=== PATIENT | male | born 1965 | race Hispanic/Latino ===

== ENCOUNTER → 2017-04-30 | Outpatient (CLI) | payer OTHER ==
--- NOTE | 2017-04-30 16:31 | Diagnostic Imaging Report ---
PROCEDURE: CT ABDOMEN AND PELVIS WITHOUT CONTRAST COMPARISON:None. INDICATIONS:BLOOD IN URINE, STONE PROTOCOL TECHNIQUE: Axial CT images through the abdomen and pelvis were obtained without intravenous contrast. Coronal and sagittal reformations were created. DLP: 762.69 FINDINGS: Lung bases: Clear. The visualized portion of the mediastinum is unremarkable. Right kidney: No renal calculus or hydronephrosis. No cortical mass. Left kidney: No renal calculus or hydronephrosis. No cortical mass. Bladder/ureters: The bladder is underdistended. Nevertheless, there is diffuse mural thickening. No perivesicular inflammation. No ureteral dilatation or calculus. Liver: Diffusely decreased attenuation. No evidence of mass. The right lobe measures 20 cm in length. Spleen: Normal size and attenuation without mass Biliary: The gallbladder is present. No evidence of gallstone. Biliary tree is normal. Pancreas: Mild fatty atrophy. No mass or ductal dilatation. Adrenal Glands: No mass. Vasculature: The aorta is normal in diameter. A few atherosclerotic calcifications are present. GI: The stomach, small bowel, and large bowel are normal in diameter and wall thickness. There is mild to moderate burden of solid stool throughout the entire colon. No diverticula cyst. The appendix is normal. Peritoneum/Retroperitoneum: No free fluid or fluid collection. Lymph nodes: No enlarged abdominal, mesenteric, pelvic or inguinal lymph nodes. Reproductive organs: The prostate gland and seminal vesicles are normal. MSK: There degenerative changes throughout the thoracic and lumbar spine. No compression deformities. There are no destructive lesions. A bone island in the left pubic symphysis measures 10 mm. There is a subcentimeter bone island in the left humeral head. Soft tissues: A fat containing umbilical hernia has an aperture of 9 mm. CONCLUSION: 1. Diffuse bladder wall thickening should be further urography. 2. Hepatic steatosis and hepatomegaly. Dictated by: Rodrigo Lynne M.D. on 04/30/2017 at 16:39 Electronically approved by: Rodrigo Lynne M.D. on 04/30/2017 at 16:39
== END ==
LOC: CT 15:19
PROVIDERS: ATTEND Family Medicine
DX: N23 Unspecified renal colic (principal)
CPT/HCPCS: 74176

== ENCOUNTER 2018-10-19 13:51 | Inpatient (IN) | payer OTHER ==
[~2018-10-19] VITALS: Ht 182.9 cm; Wt 103.4 kg
--- OUTSIDE RECORDS SUMMARY | 2018-10-19 13:54 | XMS REPORT ---
Author Author [facility] Address Unknown Phone Unavailable Care Team Providers Care District Sales Manager Name Role Phone ERNESTO ARRIAZA Unavailable Unavailable Problems This patient has no known problems. Allergies, Adverse Reactions, Alerts This patient has no known allergies or adverse reactions. Medications This patient has no known medications. Results Test Description Test Time Test Comments Text Results Atomic Results Result Comments CT ABDOMEN/PELVIS WO [place] [address] Patient Name: OMARI DAMON MR #: [id number] : 1965 Age/Sex: 51/M Req #: [id number] Adm Physician: Ordered by: ARSALAN BAIRES, ERNESTO Jo MD Report #: [id number] Location: CT Room/Bed: Procedure: [id number] CT/CT ABDOMEN/PELVIS WO Exam Date: 04/30/17 Exam Time: 1610 REPORT STATUS: Signed PROCEDURE: CT ABDOMEN AND PELVIS WITHOUT CONTRAST COMPARISON: None. INDICATIONS: BLOOD IN URINE, STONE PROTOCOL TECHNIQUE: Axial CT images through the abdomen and pelvis were obtained without intravenous contrast. Coronal and sagittal reformations were created. DLP: 762.69 FINDINGS: Lung bases: Clear. The visualized portion of the mediastinum is unremarkable. Right kidney: No renal calculus or hydronephrosis. No cortical mass. Left kidney: No renal calculus or hydronephrosis. No cortical mass. Bladder/ureters: The bladder is underdistended. Nevertheless, there is diffuse mural thickening. No perivesicular inflammation. No ureteral dilatation or calculus. Liver: Diffusely decreased attenuation. No evidence of mass. The right lobe measures 20 cm in length. Spleen: Normal size and attenuation without mass Biliary: The gallbladder is present. No evidence of gallstone. Biliary tree is normal. Pancreas: Mild fatty atrophy. No mass or ductal dilatation. Adrenal Glands: No mass. Vasculature: The aorta is normal in diameter. A few atherosclerotic calcifications are present. GI: The stomach, small bowel, and large bowel are normal in diameter and wall thickness. There is mild to moderate burden of solid stool throughout the entire colon. No diverticula cyst. The appendix is normal. Peritoneum/Retroperitoneum: No free fluid or fluid collection. Lymph nodes: No enlarged abdominal, mesenteric, pelvic or inguinal lymph nodes. Reproductive organs: The prostate gland and seminal vesicles are normal. MSK: There degenerative changes throughout the thoracic and lumbar spine. No compression deformities. There are no destructive lesions. A bone island in the left pubic symphysis measures 10 mm. There is a subcentimeter bone island in the left humeral head. Soft tissues: A fat containing umbilical hernia has an aperture of 9 mm. CONCLUSION: 1. Diffuse bladder wall thickening should be further urography. 2. Hepatic steatosis and hepatomegaly. Dictated by: Nena Lynne M.D. on 04/30/2017 at 16:39 Electronically approved by: Nena Lynne M.D. on 04/30/2017 at 16:39 Dictated By: NENA LYNNE MD [id number] Transcribed By: INNA on 04/30/17 [id number] COPY TO: ERNESTO ARRIAZA
--- NOTE | 2018-10-19 17:31 | NUR ---
PATIENT BROUGHT INTO TRIAGE. EXAMINED BY BENTON Bashir
[2018-10-19] MEDS ORDERED: DEXAMETHASONE SOD PHOS 10 MG/1 ML VIAL IM NR (17:45)
[2018-10-19] MEDS ORDERED: ORPHENADRINE CITRATE 30 MG/ML VIAL IM ONE (17:45)
[2018-10-19] MEDS ORDERED: KETOROLAC TROMETHAMINE 60 MG/2 ML VIAL IM NR (17:45)
--- NOTE | 2018-10-19 17:51 | NUR ---
PATIENT CAME TO WINDOW C/O OF MIDSTERNAL CHEST PAIN. NON RADIATING. FEELS LIKE SOMEONE IS STEPPING ON MY CHEST. DENIES ANY N/V. DENIES EVERY HAVING THIS FEELING BEFORE. STATES, "MAYBE ITS HEARTBURN, I HAVENT EATEN ALL DAY
[2018-10-19] MEDS ORDERED: NIFEDIPINE 10 MG CAP PO NR (18:00)
[2018-10-19 18:21] LABS: BASOPHILS % 0.4 % (0.0-1.0); EOSINOPHILS % 0.4 % (0.0-6.0); HEMOGLOBIN 15.2 g/dL (14.0-18.0); LYMPHOCYTES # (AUTO) 1.7 (1.0-3.2); LYMPHOCYTES % 15.5 % (18.0-39.1); MEAN CORPUSCULAR HEMOGLOBIN 34.7 pg (28-32); MEAN CORPUSCULAR HGB CONC 34.5 g/dL (31-35); MEAN CORPUSCULAR VOLUME 100.5 fL (81-99); MONOCYTES % 9.4 % (4.4-11.3); NEUTROPHILS # (AUTO) 7.9 (2.1-6.9); NEUTROPHILS % 73.8 % (38.7-80.0); PLATELET COUNT 213 x10e3/uL (140-360); RED BLOOD COUNT 4.38 x10e6/uL (4.3-5.7); RED CELL DISTRIBUTION WIDTH 13.3 % (11.7-14.4)
[2018-10-19 18:23] LABS: BILIRUBIN,URINE NEGATIVE (NEGATIVE); CLARITY,URINE CLEAR (CLEAR); COLOR,URINE YELLOW (YELLOW); KETONES,URINE NEGATIVE (NEGATIVE); LEUKOCYTE ESTERASE ,URINE NEGATIVE (NEGATIVE); NITRITE,URINE NEGATIVE (NEGATIVE); PROTEIN,URINE DIPSTICK NEGATIVE (NEGATIVE); URINE UROBILINOGEN 0.2 mg/dL (0.2 - 1)
[2018-10-19] MEDS ORDERED: DEXAMETHASONE SOD PHOS 10 MG/1 ML VIAL IV NR (18:30)
[2018-10-19] MEDS ORDERED: KETOROLAC TROMETHAMINE 60 MG/2 ML VIAL IV NR (18:30)
--- NOTE | 2018-10-19 18:51 | Diagnostic Imaging Report ---
EXAMINATION: CHEST 2 VIEWS INDICATION: Back pain COMPARISON: None FINDINGS: PA and lateral views TUBES and LINES: None. LUNGS: Lungs are well inflated. Lungs are clear. There is no evidence of pneumonia or pulmonary edema. PLEURA: No pleural effusion or pneumothorax. HEART AND MEDIASTINUM: The cardiomediastinal silhouette is unremarkable. BONES AND SOFT TISSUES: Mild anterior wedging T6 vertebral body. Degenerative changes in the thoracic spine. Right cervical rib. Soft tissues are unremarkable. UPPER ABDOMEN: No free air under the diaphragm. IMPRESSION: No acute thoracic abnormality. Degenerative changes in the thoracic spine. Signed by: Manolo Jj MD on 10/19/2018 6:48 PM
--- NOTE | 2018-10-19 18:54 | Diagnostic Imaging Report ---
Lumbar Spine Radiographs: 5 views HISTORY: Pain. COMPARISON: None available. DISCUSSION: Some of the osseous structures are partially obscured by stool and bowel gas. There are five non-rib bearing lumbar vertebral bodies. The alignment of the spine is within normal limits. No displaced fracture or compression deformity is identified. Disc Spaces: Mild disc height loss L4-S1. Multilevel disc osteophytes in the lumbar spine. Facets: Mild sclerotic changes of the lower lumbar spine facets. IMPRESSION: No acute radiographic abnormality. Moderate degenerative changes in the mid to lower lumbar spine. Signed by: Manolo Jj MD on 10/19/2018 6:50 PM
[2018-10-19 18:56] LABS: BACTERIA,URINE FEW /HPF; EPITHELIAL CELLS,URINE FEW /LPF; RBC,URINE 0-5 /HPF (0-5); WBC,URINE (MAN) 0-5 /HPF (0-5)
--- NOTE | 2018-10-19 18:58 | NUR ---
PATIENT BROUGHT BACK TO TRIAGE FOR RE-EVALUATION OF BP AND CHEST PAIN. STATES CP IS BETTER. 07/28, BP 143/83
[2018-10-19 19:19] LABS: ALANINE AMINOTRANSFERASE 36 IU/L (0-55); ALBUMIN 3.8 g/dL (3.5-5.0); ALKALINE PHOSPHATASE 49 IU/L (40-150); ANION GAP 13.2 mmol/L (8-16); BLOOD UREA NITROGEN 18 mg/dL (7-26); BUN/CREATININE RATIO 21 (6-25); CALCIUM 9.5 mg/dL (8.4-10.2); CARBON DIOXIDE 27 mmol/L (22-29); CHLORIDE 103 mmol/L (98-107); CREATINE KINASE 505 IU/L (30-200); CREATININE, SERUM 0.85 mg/dL (0.72-1.25); EST GLOMERULAR FILTRATION RATE > 60 ML/MIN (60-); GLUCOSE 94 mg/dL (74-118); MAGNESIUM 2.6 MG/DL (1.3-2.1); POTASSIUM 4.2 mmol/L (3.5-5.1); SODIUM 139 mmol/L (136-145)
[2018-10-19] MEDS ORDERED: SODIUM CHLORIDE 0.9% 1000ML 1,000 ML IV SCH (19:45)
[2018-10-19 21:03] LABS: CREATINE KINASE MB 27.7 ng/mL (0-5.0)
--- NOTE | 2018-10-19 21:06 | NUR ---
KYLIE BHARDWAJ INFORMED OF CRITICAL TROPONIN OF 1.93
[2018-10-19] MEDS ORDERED: NITROGLYCERIN 2% OINT 1 GM PKT TOP NR (21:15)
[2018-10-19] MEDS ORDERED: ASPIRIN 325 MG TAB PO NR (21:15)
[2018-10-19] MEDS ORDERED: NITROGLYCERIN 0.4 MG SUBL SL PRN (21:30)
[2018-10-19] MEDS ORDERED: SODIUM CHLORIDE FLUSH 10 ML SYR INJ PRN (21:30)
[2018-10-19] MEDS ORDERED: PROMETHAZINE HCL (IM) 25 MG/ML VIAL IV PRN (21:30)
[2018-10-19] MEDS ORDERED: ONDANSETRON HCL INJ 2MG/ML 2ML 2 MG/ML VIAL IV PRN (21:30)
[2018-10-19] MEDS ORDERED: HEPARIN SOD (PORCINE) 5,000 UNIT/ML VIAL IV NR (21:45)
[2018-10-19] MEDS ORDERED: GABAPENTIN600 MG PO (23:28)
[2018-10-19] MEDS ORDERED: METHOCARBAMOL750 MG PO (23:28)
[2018-10-19] MEDS: METOPROLOL TARTRATE 25 MG TAB PO SCH (23:45)
[2018-10-19] MEDS: FAMOTIDINE 20 MG TAB PO SCH (23:45)
--- NOTE | 2018-10-19 23:46 | NUR ---
Patient arrived via stretcher from ER with family at side. Oriented to environment and call light. Instructed to call for on the onset of pain or SOB. Call light within reach. Will continue to monitor.
[2018-10-20] VITALS (17 sets, daily range): BP systolic 128–166; BP diastolic 68–91
[2018-10-20] MEDS ORDERED: ULTRAM50 MG PO (00:37)
[2018-10-20] MEDS ORDERED: tylenol arthritis PO (00:37)
[2018-10-20] MEDS ORDERED: BACLOFEN10 MG PO (00:37)
[2018-10-20] MEDS ORDERED: PREDNISONE50 MG PO (00:37)
[2018-10-20] MEDS ORDERED: Tylenol Arthritis PO (02:10)
[2018-10-20 04:35] LABS: CHOL/HDL RATIO 2.4 (3.9-4.7)
[2018-10-20 04:45] LABS: CREATINE KINASE MB 23.2 ng/mL (0-5.0)
--- NOTE | 2018-10-20 04:50 | NUR ---
Dr Reynolds on unit, notified of elevated trop 7.204. Keep patient NPO.
--- NOTE | 2018-10-20 06:00 | NUR ---
Patient in bed with son at bedside. No issues or concerns. Call light remains in reach. Will continue to monitor.
--- NOTE | 2018-10-20 06:26 | NUR ---
Spoke with Dr Salinas to verify that notified of consult for NSTEMI. Will see patient this morning.
--- NOTE | 2018-10-20 06:45 | Diagnostic Imaging Report ---
EXAMINATION: CHEST SINGLE (PORTABLE) COMPARISON: Chest x-ray 10/19/2018 INDICATION: ^myocardial infarction ^Y DISCUSSION: Frontal view of the chest obtained at 0546 hours. HEART AND MEDIASTINUM: The cardiomediastinal silhouette is unremarkable. LINES: None. LUNGS: The lungs are well inflated and clear. No pneumonia or pulmonary edema. PLEURA: No pleural effusion or pneumothorax. BONES AND SOFT TISSUES: Stable. IMPRESSION: No acute cardiopulmonary disease. Signed by: Dr. Rodrigo Lynne MD on 10/20/2018 6:42 AM
[2018-10-20] MEDS ORDERED: HEPARIN 25,000 UNIT 1,000 UNIT in DEXTROSE 5% 250ML 250 ML IV SCH (08:00)
[2018-10-20] MEDS: ASPIRIN 325 MG TAB EC PO SCH (08:45)
[2018-10-20] MEDS: METOPROLOL TARTRATE 25 MG TAB PO SCH ×2 (08:45→21:54)
[2018-10-20] MEDS: FAMOTIDINE 20 MG TAB PO SCH ×2 (08:45→21:53)
[2018-10-20] MEDS ORDERED: VERAPAMIL HCL 2.5 MG/ML 2 ML VIAL ONE (12:30)
[2018-10-20] MEDS ORDERED: ONDANSETRON HCL 4 MG ORAL DISINTEGRATING TAB PO PRN (12:30)
[2018-10-20] MEDS ORDERED: LIDOCAINE HCL 2% LOCAL 20 ML VIAL ONE (12:31)
[2018-10-20] MEDS ORDERED: HEPARIN SOD/SOD CHLORIDE 2,000 ML ONE (12:31)
[2018-10-20] MEDS ORDERED: MIDAZOLAM HCL 2 MG/2 ML VIAL ONE ×2 (12:31→13:15)
[2018-10-20] MEDS ORDERED: FENTANYL CITRATE/PF 100MCG/2 ML INJ ONE (12:31)
[2018-10-20] MEDS ORDERED: IOPAMIDOL 370 MG/ML 200 ML INFUS..BTL INJ ONE (12:32)
[2018-10-20] MEDS ORDERED: SODIUM CHLORIDE 0.9% 1000ML 1,000 ML ONE (12:32)
--- NOTE | 2018-10-20 12:34 | Consultation ---
DATE OF CONSULTATION: 10/20/2018 Cardiology Consultation Note INDICATIONS: Fbj-FW-cggknrq elevation myocardial infarction. HISTORY OF PRESENT ILLNESS: Mr. Mcdonough is a 53-year-old gentleman with a history of chronic back pain, who came into the emergency room initially complaining of back pain and right-sided sciatica, subsequently developed chest pain and cardiac enzymes including cardiac troponin were elevated at 1.5, CK and CK-MB are elevated with lkb-XL-xalpdfp elevation myocardial infarction. He continues to have some mild substernal chest pain. He has been appropriately anticoagulated and on beta-kobi medical therapy for his yex-IT-oedmmpp elevation myocardial infarction. PAST MEDICAL HISTORY: Listed above. SOCIAL HISTORY: The patient does not smoke. FAMILY HISTORY: Significant for valvular heart disease in his father. REVIEW OF SYSTEMS: Negative except as dictated in the history of present illness. PHYSICAL EXAMINATION: VITAL SIGNS: Afebrile, heart rate is 55, blood pressure is 148/90. CARDIOVASCULAR: Regular rhythm. S4 gallop. Systolic murmur 2/6. LUNGS: Clear to auscultation bilaterally. ABDOMEN: Soft. EXTREMITIES: Pedal pulses are 2+. Radial pulses are 2+. LABORATORY DATA: Telemetry shows sinus bradycardia. EKG shows sinus rhythm without ST changes. Labs were reviewed. Serum creatinine is normal. Cardiac troponin is elevated consistent with phl-WX-zjyncre elevation myocardial infarction. Chest x-ray was reviewed. ASSESSMENT: Yqi-AL-trmyebg elevation myocardial infarction. RECOMMENDATIONS: Medical therapy with aspirin, heparin, beta-kobi and statin has been initiated. The patient requires cardiac catheterization, coronary angiography and intervention as deemed necessary. Risks, benefits, and alternatives of the procedure were discussed with the patient and he is agreeable for the same. This will be performed this morning. I thank Dr. Reynolds for this consultation. MD APOLINAR Corona/THERESA /[id number]
[2018-10-20] MEDS ORDERED: HEPARIN SOD (PORCINE) 1000 UNIT/ML 30ML ONE (12:36)
[2018-10-20 12:37] LABS: CREATINE KINASE MB 14.4 ng/mL (0-5.0)
--- NOTE | 2018-10-20 12:40 | NUR ---
patient leaving unit for cath procedure. alert and oriented and in no distress
--- NOTE | 2018-10-20 12:41 | NUR ---
notified by lab of elevated troponin level, already aware of troponin levels, patient to go for heart cath this afternoon.
[2018-10-20] MEDS ORDERED: SODIUM CHLORIDE 0.9% 50ML 0 ML ONE (13:18)
[2018-10-20] MEDS ORDERED: BIVALRIUDIN 250 MG/VIAL VIAL IV ONE (13:18)
[2018-10-20] MEDS ORDERED: ATROPINE SULFATE 0.1 MG/ML 10ML SYR ONE (13:19)
--- NOTE | 2018-10-20 13:40 | NUR ---
RECEIVED REPORT FROM MARY JO IN OBS AWAITING FOR PT TO ARRIVE TO FLOOR
--- NOTE | 2018-10-20 13:40 | NUR ---
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 Bilateral ppx4 PT/DP strong and present. Dr Salinas, no fix via Rt wrist TR band approach, No gross issues pain pallor pressure or dysrhythmia. No hematoma or oozing at site.Ok to decrease air TR-band at 3pm. left ac iv infusing at 75cchr via dial flow. Site w/o s/s infiltration. Back to baseline orientation. Respiration shallow and regular 98% sat Room air Abdomen soft and non tender. Denies necessity to defecate or urinate. Diagram and POC for arterial access explained. Understands must keep rt arm still Monitor SR no ectopics. NO c/o this time. clayton/galo
--- NOTE | 2018-10-20 13:47 | NUR ---
report given to Aleyda for patient transfer to new unit.
--- NOTE | 2018-10-20 15:00 | NUR ---
1500 TR band air deflation started 14cc in Rt Radial approach site. NO gross issues of pain or pallor Neuro vascular function remain intact. 1515 Continue Tr band deflation no gross issues of pain or pallor Normal neuro vascular function 1530 Continue Tr band deflation no gross issues of pain or pallor Normal neuro vascular function. 1545 TR band off Sterile 2x2 with Coban and wrist splint in place Normal neuro vascular function. Report to HERON Maynard stable TR band site NO fix Pt tolerating po intake with sandwich tray sent back to floor care per pt preference. No gross issues pain pallor or dysthymia. Patient has copy of procedural diagram and knows importance f/o care and care of rt arm. Has positive neuro vascular function stable vs and ekg in NSR Denies CP or SOB still has mild c/o of sciatic pain to leg with numbness .Positive ppx4 Dp/Pt palpable. ds/rn
--- NOTE | 2018-10-20 16:00 | NUR ---
1600p Transported to floor care per bed and Rn escort x2 Rt tr band off and site stable with arm splint in place. Face face handoff completed with Liya Maynard Call light at bedside and pt aware of necessity to ask for assistance. Bed in low position and locked. Family at bedside. Iv infusing well left ac at 75hr via dial a flow no s/s infiltration. Pt was transported with tele and report to tele room remain in SR no gross issues pain, pallor, pressure or dysrhythmia. Denies CP or SOB. ds/rn
--- NOTE | 2018-10-20 16:00 | NUR ---
RECEIVED REPORT FROM NILDA . AWAITING FOR PT TO ARRIVE TO UNIT
[2018-10-20] MEDS: SODIUM CHLORIDE 0.9% 1000ML 1,000 ML IV SCH ×2 (16:15→22:02)
--- NOTE | 2018-10-20 16:16 | NUR ---
RECEIVED PT TO FLOOR [id number]. PT HAS A RIGHT WRIST WITH COBAN AND STABILIZER S/P HEART CATH PT IS IN NO S/S OF DISTRESS FAMILY AT BESIDE WILL CONTINUE TO MONITOR SIDE RAILSX2, BED WHEELS LOCKED, CALL LIGHT IS WITHIN EASY REACH, INSTRUCTED TO CALL FOR ASSISTANCE IF NEEDED
[2018-10-20] MEDS: SIMVASTATIN 40 MG TAB PO SCH (21:53)
[2018-10-20] MEDS: MORPHINE SULFATE INJ 4 MG/ML INJ 1ML IV PRN (22:02)
[2018-10-21] VITALS (7 sets, daily range): BP systolic 115–152; BP diastolic 65–74
[2018-10-21] MEDS: SODIUM CHLORIDE 0.9% 1000ML 1,000 ML IV SCH (05:35)
[2018-10-21] MEDS: ASPIRIN 325 MG TAB EC PO SCH (09:17)
[2018-10-21] MEDS: METOPROLOL TARTRATE 25 MG TAB PO SCH ×2 (09:18→21:13)
[2018-10-21] MEDS: FAMOTIDINE 20 MG TAB PO SCH ×2 (09:18→21:13)
--- NOTE | 2018-10-21 11:30 | NUR ---
STABILIZER AND COBAN REMOVED FROM RIGHT WRIST S/P HEART CATH 10/20 PER MD JACKSON WRIST WRIST SMALL DRESSING WITH GAUZE AND TEGADERM IN PLACE. DRY AND INTACT. 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
--- NOTE | 2018-10-21 17:14 | Progress Note ---
DATE: 10/21/2018 Cardiology Progress Note SUBJECTIVE: The patient complains of right leg pain that has been ongoing for a while and also lower back pain. Denies any chest pain or shortness of breath. OBJECTIVE: VITAL SIGNS: Temperature 98.2, pulse 71, respiratory rate 18, blood pressure 125/74, and oxygen saturation 99% on room air. GENERAL: Alert and oriented x3, resting comfortably in bed, does not appear to be in any acute distress. LUNGS: Clear to auscultation throughout. No wheezing. No rhonchi or crackles. CARDIOVASCULAR: Regular rate and rhythm. Normal S1, S2. Systolic murmur 2/6 present. S4 gallop. ABDOMEN: Soft, nontender. LOWER EXTREMITIES: 2+ pedal pulses. CARDIOVASCULAR MEDICATIONS: Metoprolol 50 mg p.o. b.i.d., simvastatin 40 mg p.o. h.s. LABORATORY DATA: No new labs today ASSESSMENT: 1. Fwg-XY-oesxpfk elevation myocardial infarction. 2. Hypertension. 3. Dyslipidemia. RECOMMENDATION: The patient is status post the left heart catheterization yesterday with no angiographic CAD noted. Continue the above-listed cardiac medications. Address back pain and radiation of pain to the right lower extremity. It is reported that the patient is awaiting an MRI. We will continue to monitor. Dictated by Isabelle Torres NP Franky Salinas MD JWV/THERESA /[id number]
--- NOTE | 2018-10-21 18:12 | Diagnostic Imaging Report ---
Examination: MRI SPINE LUMBAR WO CONTRAST History: Back pain with right lower extremity radiation. Comparison studies: Lumbar spine X-Ray 10/19/2018 Technique: Sagittal, coronal and axial T2 , sagittal T1 and STIR; axial spin density oblique. Findings: Number of lumbar vertebral bodies: Five. Alignment: Normal lordosis. No scoliosis. Soft tissues: No T2 hyperintense inflammatory changes. Posterior paraspinal soft tissues and muscles: No abnormality. Lower thoracic cord: Normal in signal and morphology. The tip of the conus is at T12-L1. Cauda equina: No masses. No arachnoiditis. Vertebrae: No fractures, infection or neoplasm. Small Schmorl's node along the right posterosuperior margin of the L5 vertebral body with adjacent edema. Degenerative changes: L1-L2: No abnormalities. L2-L3: Mil diffuse disc bulge. No foraminal or canal stenosis. L3-L4: Mil diffuse disc bulge and bilateral facet arthropathy. No foraminal or canal stenosis. L4-L5: Asymmetric to the right disc bulge results in minimal right neural foraminal narrowing and mild canal stenosis. No left foraminal stenosis. L5-S1: Mil diffuse disc bulge and bilateral facet arthropathy result in minimal bilateral neural foraminal narrowing, No canal stenosis. IMPRESSION: Mild degenerative changes from L2-L3 through L5-S1 with mild canal stenosis at L4-L5 No significant (not moderate or severe) foraminal stenosis. Signed by: Dr. Leela Jacob M.D. on 10/21/2018 6:09 PM
--- NOTE | 2018-10-21 18:13 | NUR ---
MRI COMPLETE SPOKE WITH MD NESS REGARDING COMPLETION STATES PT WILL STAY HERE OVERNIGHT
[2018-10-21] MEDS ORDERED: BISACODYL 5 MG TAB EC PO ONE (19:30)
--- NOTE | 2018-10-21 21:05 | NUR ---
REPORT GIVEN TO CHANCE SHELBY. PT TRANSFERRED TO ROOM 192 ICU. VITAL SIGNS STABLE Addendum: 10/21/18 at 2111 by Kg Youssef RN ERROR. WRONG PATIENT.
[2018-10-21] MEDS: SIMVASTATIN 40 MG TAB PO SCH (21:13)
[2018-10-22] MEDS: MORPHINE SULFATE INJ 4 MG/ML INJ 1ML IV PRN (00:08)
[2018-10-22 00:17] VITALS: BP 124/69
[2018-10-22 04:00] VITALS: BP 130/69
[2018-10-22 07:49] VITALS: BP 127/76
[2018-10-22] MEDS: ASPIRIN 325 MG TAB EC PO SCH (09:44)
[2018-10-22] MEDS: METOPROLOL TARTRATE 25 MG TAB PO SCH (09:45)
[2018-10-22] MEDS: FAMOTIDINE 20 MG TAB PO SCH (09:45)
[2018-10-22 09:52] VITALS: BP 127/76
[2018-10-22] MEDS ORDERED: PREDNISONE20 MG PO (10:32)
--- NOTE | 2018-11-03 21:28 | Discharge Summary ---
DISCHARGE DIAGNOSIS: 1. ST-elevation myocardial infarction. 2. Prinzmetal angina. 3. Sciatica. HISTORY OF PRESENT ILLNESS AND HOSPITAL COURSE: See hospital chart for full details. The patient is a gentleman, who presented with back pain, where he had an initial workup that was unremarkable. Plain film radiographs . Walking out of the emergency room, he started having acute onset of chest pain, so he re-presented back to the emergency room, where he was noticed to have ST-segment elevation of his EKGs. He went straight to the cath showed completely clear coronaries and had resolution of his chest pain prior to the catheterization, so most likely having vasospasm of the coronary arteries as a likely source. He did have elevations of his cardiac enzymes consistent with the spasm, but actually no injury and no further chest pain during his hospitalization. He was able to ambulate well with no issues, but due to his sciatica pain, he did have an MRI done that did show some and szdr-yy-cfbpimet changes that did not require any surgical intervention, and I did discuss with him following up with an outpatient pain medicine doctor for possible epidural shots, which he will follow up with his primary care physician to help arrange. Please see hospital chart for full details. MD GABBI Sierra/THERESA /[id number]
== END 2018-10-22 11:00 | disposition home or self-care (01) | DRG 282 ==
LOC: ER 13:51 → ERHOLD 23:30 → IMCU 23:50 → OBSVTOIN 10-20 13:32 → MED/SURG 10-20 14:25
PROVIDERS: ADMIT Internal Medicine; ATTEND Internal Medicine
PROC: 4A023N7 Measurement of Cardiac Sampling and Pressure, Left Heart, Percutaneous Approach (ICD-10-PCS; principal; 2018-10-20)
PROC: B2111ZZ Fluoroscopy of Multiple Coronary Arteries using Low Osmolar Contrast (ICD-10-PCS; 2018-10-20)
DX: I21.4 Non-ST elevation (NSTEMI) myocardial infarction (principal); M54.41 Lumbago with sciatica, right side; I20.1 Angina pectoris with documented spasm; I21.A1 Myocardial infarction type 2; E78.5 Hyperlipidemia, unspecified; I10 Essential (primary) hypertension; E66.9 Obesity, unspecified; Z68.30 Body mass index [BMI] 30.0-30.9, adult
CPT/HCPCS: 36415; 71045; 71046; 72110; 72148; 80053; 80061; 81001; 82550; 82553; 83735; 83880; 84484; 85025; 85730; 93005; 93306; 99284; G0378; J0583; J1100; J1644; J1885; J2001; J2250; J2270; J2360; J3010; J7030; Q9967

== ENCOUNTER 2020-10-20 17:17 | Emergency (ER) | payer OTHER ==
[~2020-10-20] VITALS: Ht 182.9 cm; Wt 103.4 kg
[~2020-10-20 17:17] MED LIST: BACLOFEN10 MG PO; GABAPENTIN600 MG PO; METHOCARBAMOL750 MG PO; PREDNISONE20 MG PO; PREDNISONE50 MG PO; Tylenol Arthritis PO; ULTRAM50 MG PO; tylenol arthritis PO
[2020-10-20] MEDS ORDERED: KETOROLAC TROMETHAMINE 60 MG/2 ML VIAL IM ONE (17:45)
[2020-10-20] MEDS ORDERED: DEXAMETHASONE SOD PHOS 10 MG/1 ML VIAL IV ONE (17:45)
[2020-10-20] MEDS ORDERED: DIAZEPAM 2 MG TAB PO ONE (17:45)
[2020-10-20] MEDS ORDERED: DIAZEPAM 2 MG TAB ONE (17:58)
[2020-10-20] MEDS ORDERED: DEXAMETHASONE SOD PHOS 10 MG/1 ML VIAL ONE (17:59)
[2020-10-20] MEDS ORDERED: METHOCARBAMOL750 MG PO (18:22)
[2020-10-20] MEDS ORDERED: HYDROCODONE/APAP 10MG-325MG TAB PO ONE (19:30)
[2020-10-20] MEDS ORDERED: HYDROCODONE/APAP 10MG-325MG TAB ONE (19:33)
== END 2020-10-20 20:07 | disposition home or self-care (01) ==
LOC: ER 17:50
DX: M54.5 Low back pain (principal)
CPT/HCPCS: 99283; J1100; J1885

== ENCOUNTER 2024-01-04 18:33 | Observation (INO) | payer OTHER ==
[~2024-01-04] VITALS: Ht 182.9 cm; Wt 111.2 kg
[~2024-01-04 18:33] MED LIST changes: +AZITHROMYCIN250 MG PO; +KETOROLAC TROME10 MG PO; +ULTRAM 50MG50 MG PO; +VENTOLIN HFA18 GM INH
[2024-01-04 18:47] LABS: BASOPHILS # (AUTO) 0.1 (0.0-0.1); BASOPHILS % 0.7 % (0.0-1.0); EOSINOPHILS # (AUTO) 0.2 (0.0-0.4); EOSINOPHILS % 3.1 % (0.0-6.0); HEMATOCRIT 52.3 % (38.2-49.6); HEMOGLOBIN 17.7 g/dL (14.0-18.0); LYMPHOCYTES # (AUTO) 1.6 (1.0-3.2); LYMPHOCYTES % 24.1 % (18.0-39.1); MEAN CORPUSCULAR HEMOGLOBIN 34.2 pg (28-32); MEAN CORPUSCULAR HGB CONC 33.8 g/dL (31-35); MEAN CORPUSCULAR VOLUME 101.2 fL (81-99); MONOCYTES # (AUTO) 0.7 (0.2-0.8); MONOCYTES % 10.3 % (4.4-11.3); NEUTROPHILS # (AUTO) 4.2 (2.1-6.9); NEUTROPHILS % 61.5 % (38.7-80.0); PLATELET COUNT 185 x10e3/uL (140-360); RED BLOOD COUNT 5.17 x10e6/uL (4.3-5.7); RED CELL DISTRIBUTION WIDTH 12.6 % (11.7-14.4)
[2024-01-04] MEDS: SODIUM CHLORIDE 0.9% 1000ML 1,000 ML IV STA (18:53)
[2024-01-04] MEDS: METOPROLOL TARTRATE INJ 1 MG/ML VIAL IV STA (18:53)
[2024-01-04] MEDS: DIGOXIN INJ 0.25 MG/ML 2 ML AMP IV STA (18:54)
[2024-01-04] MEDS: DILTIAZEM HCL 5 MG/ML 5 ML VIAL IV STA (19:05)
[2024-01-04 19:07] LABS: ALBUMIN 4.4 g/dL (3.5-5.0); ALBUMIN/GLOBULIN RATIO 0.9 (0.8-2.0); ANION GAP 17.4 mmol/L (8-16); BILIRUBIN,TOTAL 0.6 mg/dL (0.2-1.2); CALCIUM 10.1 mg/dL (8.4-10.2); CREATININE, SERUM 1.06 mg/dL (0.72-1.25); POTASSIUM 4.4 mmol/L (3.5-5.1); TOTAL PROTEIN 9.3 g/dL (6.5-8.1)
[2024-01-04 19:13] LABS: TROPONIN I 0.015 ng/mL (0-0.300)
[2024-01-04] MEDS: SODIUM CHLORIDE 0.9% 1000ML 1,000 ML IV SCH (19:25)
[2024-01-04 20:37] VITALS: PULSE 102; RESP 18; TEMP 98.1
[2024-01-04 21:15] VITALS: BP 149/83; PULSE 94; RESP 22; TEMP 98.5; O2SAT 96
[2024-01-04] MEDS ORDERED: GUAIFENESIN/DEXTROMETHORPHAN LIQD 5 ML UDC PO PRN (21:15)
[2024-01-04] MEDS ORDERED: TRAMADOL HCL 50 MG TAB PO PRN (21:15)
[2024-01-04] MEDS ORDERED: DOCUSATE SODIUM 100 MG CAP PO PRN (21:15)
[2024-01-04] MEDS ORDERED: KETOROLAC TROMETHAMINE 10 MG TAB PO PRN (21:15)
[2024-01-04] MEDS ORDERED: ONDANSETRON HCL INJ 2MG/ML 2ML 2 MG/ML VIAL IV PRN (21:15)
[2024-01-04] MEDS ORDERED: ACETAMINOPHEN 325 MG TAB PO PRN (21:15)
[2024-01-04] MEDS ORDERED: MAGNESIUM/ALUMINUM/SIMETHICONE 30 ML UDC PO PRN (21:15)
[2024-01-04] MEDS ORDERED: MELATONIN 3 MG TAB PO PRN (21:15)
[2024-01-05] VITALS (8 sets, daily range): BP systolic 149–178; BP diastolic 79–91; PULSE 65–90; RESP 17–20; TEMP 97–98.2; O2SAT 96–99
[2024-01-05 05:30] LABS: BASOPHILS # (AUTO) 0.1 (0.0-0.1); BASOPHILS % 0.9 % (0.0-1.0); EOSINOPHILS # (AUTO) 0.2 (0.0-0.4); EOSINOPHILS % 2.6 % (0.0-6.0); HEMATOCRIT 44.9 % (38.2-49.6); HEMOGLOBIN 14.9 g/dL (14.0-18.0); LYMPHOCYTES # (AUTO) 1.9 (1.0-3.2); LYMPHOCYTES % 31.7 % (18.0-39.1); MEAN CORPUSCULAR HEMOGLOBIN 33.7 pg (28-32); MEAN CORPUSCULAR HGB CONC 33.2 g/dL (31-35); MEAN CORPUSCULAR VOLUME 101.6 fL (81-99); MONOCYTES # (AUTO) 0.7 (0.2-0.8); MONOCYTES % 12.3 % (4.4-11.3); NEUTROPHILS # (AUTO) 3.1 (2.1-6.9); NEUTROPHILS % 52.2 % (38.7-80.0); PLATELET COUNT 157 x10e3/uL (140-360); RED BLOOD COUNT 4.42 x10e6/uL (4.3-5.7); RED CELL DISTRIBUTION WIDTH 12.9 % (11.7-14.4); WHITE BLOOD COUNT 5.86 x10e3/uL (4.8-10.8)
[2024-01-05 05:49] LABS: ALBUMIN 3.6 g/dL (3.5-5.0); ANION GAP 10.2 mmol/L (8-16); BILIRUBIN,TOTAL 0.5 mg/dL (0.2-1.2); CALCIUM 9.6 mg/dL (8.4-10.2); CREATININE, SERUM 0.93 mg/dL (0.72-1.25); POTASSIUM 4.2 mmol/L (3.5-5.1); TOTAL PROTEIN 7.3 g/dL (6.5-8.1)
[2024-01-05 06:27] LABS: TROPONIN I 0.121 ng/mL (0-0.300)
[2024-01-05 06:30] LABS: THYROID STIMULATING HORMONE 3.168 uIU/mL (0.350-4.940)
[2024-01-05] MEDS: MULTIVITAMINS/MINERALS TAB PO SCH (09:36)
[2024-01-05] MEDS: HYDRALAZINE HCL 20 MG/ML VIAL IV PRN (09:37)
[2024-01-05 15:33] LABS: TROPONIN I 0.062 ng/mL (0-0.300)
[2024-01-05] MEDS ORDERED: AMIODARONE HCL200 MG PO (15:42)
[2024-01-05] MEDS ORDERED: METOPROLOL SUCC50 MG PO (15:42)
[2024-01-05] MEDS ORDERED: ELIQUIS5 MG PO (15:42)
[2024-01-05] MEDS: METOPROLOL TARTRATE 25 MG TAB PO SCH (17:19)
[2024-01-05] MEDS: AMIODARONE HCL 200 MG TAB PO SCH (17:19)
== END 2024-01-05 18:30 | disposition home or self-care (01) ==
LOC: ER 18:36 → ERHOLD 20:00 → MED/SURG3 22:13
PROVIDERS: ADMIT Internal Medicine Critical Care Medicine; ATTEND Internal Medicine Critical Care Medicine
DX: I48.3 Typical atrial flutter (principal); R00.0 Tachycardia, unspecified; R07.9 Chest pain, unspecified; I10 Essential (primary) hypertension; I25.2 Old myocardial infarction; Z82.49 Family history of ischemic heart disease and other diseases of the circulatory system; G89.29 Other chronic pain; M54.9 Dorsalgia, unspecified; E78.5 Hyperlipidemia, unspecified; E66.9 Obesity, unspecified; Z68.33 Body mass index [BMI] 33.0-33.9, adult; F10.20 Alcohol dependence, uncomplicated; M19.91 Primary osteoarthritis, unspecified site; Z79.899 Other long term (current) drug therapy; Z79.52 Long term (current) use of systemic steroids
CPT/HCPCS: 36415 ×2; 71045; 80053 ×2; 82550 ×2; 83690; 83735; 83880; 84443; 84484 ×2; 85025 ×2; 93005 ×2; 93306; 99252; 99284; G0378 ×2; J0360; J1160; J7030